=== PATIENT | male | born 1975 | race Two or more races ===

== ENCOUNTER 2018-07-28 01:56 | Emergency (ER) | payer OTHER ==
[~2018-07-28] VITALS: Ht 180.3 cm; Wt 70.3 kg
[2018-07-28 02:00] VITALS: BP 109/71
--- NOTE | 2018-07-28 04:41 | NUR ---
REFER TO DOWNTIME CHARTING FOR ALL INFORMATION
[2018-07-28 05:20] LABS: CALCIUM, SERUM 9.1 mg/dL (8.5-10.1); POTASSIUM 4.2 mmol/L (3.5-5.1)
[2018-07-28 05:21] LABS: ALBUMIN 4.1 g/dL (3.4-5.0); BILIRUBIN,TOTAL 0.4 mg/dL (0.2-1.0); CREATININE 1.1 mg/dL (0.6-1.3)
[2018-07-28 05:38] LABS: BASOPHILS % (AUTO) 0.5 % (0.0-2.0); EOSINOPHILS % (AUTO) 4.5 % (0.0-6.0); HEMATOCRIT 43 % (39-51); HEMOGLOBIN 14.3 g/dL (13.5-17.5); LYMPHOCYTES % (AUTO) 29.3 % (20.0-44.0); MEAN CORPUSCULAR HGB CONC 34 g/dl (31.0-36.0); MEAN CORPUSCULAR VOLUME 90 fL (80-96); MONOCYTES % (AUTO) 4.7 % (2.0-12.0); PLATELET COUNT (AUTO) 216 /CMM (150-450); RED BLOOD CELL COUNT(AUTO) 4.75 MIL/uL (4.5-6.0); WHITE BLOOD COUNT (AUTO) 8.4 K/uL (4.3-11.0)
[2018-07-28 05:39] LABS: D-DIMER < 0.19 mg/L(FEU (0.17-0.50)
== END 2018-07-28 05:04 | disposition home or self-care (01) ==
LOC: ER 01:57
DX: R07.89 Other chest pain (principal)
CPT/HCPCS: 36415; 71045-TC; 80053-TC; 84484-TC; 85025-TC; 85378-TC; 85610-TC; 85730-TC